=== PATIENT | female | born 1975 | race Two or more races ===

== ENCOUNTER → 2017-01-13 | Outpatient (CLI) | payer OTHER ==
[2016-03-19 15:00] VITALS: BP 111/63
[~2017-01-13] MED LIST: AZAT50TA PO; BUSP15TA PO; CHOL2000 PO; DIAZ5TAB4 PO; ERGO500027 PO; ESCITALOPRAM OX20 MG PO; FOLI1TAB16 PO; GABA-586 PO; HYDR-2762 PO; HYDR200T PO; HYDR25TA PO; IOHEXOL 240 MG/ML 50ML VIAL. PO ONE; IOHEXOL 300 MG/ML 75 ML VIAL IV ONE; METH2.5T PO; NORT25CA PO; OMEP20CA9 PO; PRED1TAB3 PO; TIZA4TAB PO; TRAZ50TA15 PO
--- NOTE | 2017-01-13 10:15 | RAD ---
Exam performed: Complete abdominal sonogram. Indication:Right lower quadrant pain since bowel resection Date of exam: 01/13/17 Technique:Real time norman scale imaging of the abdomen is performed and images are obtained. Findings : The liver is normal in size, however mild steatosis is noted. The liver measures 14.5 cm in length. No intra- or extrahepatic biliary dilatation is present. The gallbladder appears normal. Pancreas is poorly visualized due to overlying bowel gas unremarkable. The spleen is normal in size. Both kidneys are unremarkable without evidence for hydronephrosis. Right kidney measures 9.9 x 5.2 x 4.6 and the left kidney measures 11.1 x 5.0 x 5.7. The visualized inferior vena cava and aorta appear normal. No free fluid Impression: Mild hepatic steatosis. No additional abnormality seen.
--- NOTE | 2017-01-13 14:39 | RAD ---
CT scan of the abdomen and pelvis with contrast 01/13/2017 Clinical history: Right lower quadrant abdominal pain. Technique: After the oral and intravenous administration of contrast, contiguous, 5 mm axial sections were obtained through the abdomen and pelvis. 75 cc of Omnipaque 300 were administered intravenously during this examination. One or more of the following individualized dose reduction techniques were utilized for this study: 1. Automated exposure control. 2. Adjustment of the mA and/or kV according to patient size. 3. Use of iterative reconstruction technique. Findings: Comparison study is dated 01/13/2016. Images through the lung bases demonstrate minimal dependent subsegmental atelectasis bilaterally. The liver, spleen, pancreas, adrenal glands and kidneys are within normal limits. Mild atherosclerotic calcification of the abdominal aorta is seen. The abdominal aorta tapers normally. The gallbladder is contracted. No free fluid or free air is seen within the abdomen. There is no evidence of bowel obstruction. The patient is status post resection of a portion of the ascending colon. Images through the pelvis demonstrate the urinary bladder to be contracted. Calcifications are seen within the pelvis consistent with phleboliths. No free fluid is seen. The patient appears to be post hysterectomy. No adnexal mass is noted. Very mild S-shaped curvature of the thoracolumbar spine is seen. Impression: No acute abnormality is seen.
== END | disposition home or self-care (01) ==
LOC: US 09:15
PROVIDERS: ATTEND Surgery
DX: K76.0 Fatty (change of) liver, not elsewhere classified (principal)
CPT/HCPCS: 74177; 76700; Q9966; Q9967

== ENCOUNTER → 2017-02-15 | Outpatient (CLI) | payer OTHER ==
[2016-03-19 15:00] VITALS: BP 111/63
[~2017-02-15] MED LIST changes: -IOHEXOL 240 MG/ML 50ML VIAL. PO ONE; -IOHEXOL 300 MG/ML 75 ML VIAL IV ONE
--- NOTE | 2017-02-15 09:17 | RAD ---
DATE: 02/15/2017 EXAM: DIGITAL SCREEN BILAT W/CAD HISTORY: Routine screening COMPARISON: Previous mammogram from 2016 This study was interpreted with the benefit of Computerized Aided Detection (CAD). FINDINGS: Breast Density: SCATTERED The breast parenchyma shows scattered fibroglandular densities. Breast parenchyma level B. The skin and nipples are within normal limits. No suspicious calcifications, spiculated masses or areas of architectural distortion. Benign calcifications. IMPRESSION: No mammographic evidence of malignancy. Stable mammogram. BI-RADS CATEGORY: 2 BENIGN FINDING(S) RECOMMENDED FOLLOW-UP: 12M 12 MONTH FOLLOW-UP PQRS compliance statement: Patient information was entered into a reminder system with a target due date 02/15/2018 for the next mammogram. Mammography is a sensitive method for finding small breast cancers, but it does not detect them all and is not a substitute for careful clinical examination. A negative mammogram does not negate a clinically suspicious finding and should not result in delay in biopsying a clinically suspicious abnormality. "Our facility is accredited by the [employer] Mammography Program."
== END | disposition home or self-care (01) ==
LOC: MAMMO 08:14
PROVIDERS: ATTEND Family Medicine
DX: Z12.31 Encounter for screening mammogram for malignant neoplasm of breast (principal)
CPT/HCPCS: G0202; 77067

== ENCOUNTER 2019-05-24 07:23 | Day surgery (SDC) | payer MEDICAID ==
[~2019-05-24] VITALS: Ht 167.6 cm; Wt 57.0 kg
[~2019-05-24 07:23] MED LIST changes: -GABA-586 PO; +GABA300C18 PO; +HEPARIN 1,000 UNIT in IV NORMAL SALINE 1,000 ML for SURG PERIOP IRR ONE; -HYDR-2762 PO; +HYDR-2765 PO; +HYDR-3164 PO; -HYDR200T PO; +HYDR200T71 PO; +HYDROmorphone 2 MG/ML VIAL IV PRN; +IBUPROFEN 200 MG TABLET. PO ONE; +OMEP20CA16 PO; -OMEP20CA9 PO; +PANT20TA2 PO; +PROCHLORPERAZINE 10 MG/2 ML VIAL. IV PRN; +TACR100O2 TP; -TIZA4TAB PO; +TIZA4TAB2 PO; +TRAZ-118 PO; -TRAZ50TA15 PO; +fentaNYL PF VIAL 100 MCG/2 ML VIAL IV PRN
[2019-05-24] MEDS ORDERED: BUPIVACAINE-EPI 0.5%-1:200000 MPF 30 ML VIAL. ONE (08:04)
[2019-05-24] MEDS ORDERED: IOHEXOL 300 MG/ML 50 ML VIAL. ONE (08:04)
[2019-05-24] MEDS ORDERED: SURGICEL HEMOSTAT 4X8 EACH. ONE (08:04)
--- NOTE | 2019-05-24 08:04 | PDOC ---
SURGICAL PROGRESS NOTE Subjective Pre-Op Note 44 yo F with weight loss and extensive GI w/u TO OR for laparoscopic versus open exploration and cholecystectomy with cholangiogram. R/R/B/A d/w pt. Risks, including, but not limited to: bleeding, infection, damage to surrounding structures, risk of anesthesia, risk of , risk of not improving symptoms. She appears to understand, her questions are answered and she elects to proceed. Office note H&P reviewed and unchanged. Vital Signs Vital Signs Date Time Temp Pulse Resp B/P (MAP) Pulse Ox O2 Delivery O2 Flow Rate FiO2 05/24/19 07:45 98.1 80 20 132/76 98 Room Air 98.1 JUDI PALMER MD May 24, 2019 08:04
[2019-05-24] MEDS ORDERED: BISACODYL 10 MG SUPP.RECT. ONE (08:05)
[2019-05-24] MEDS ORDERED: PROPOFOL 20 ML IV ONE (08:14)
[2019-05-24] MEDS ORDERED: LIDOCAINE 2% PF 5 ML VIAL. ONE (08:14)
[2019-05-24] MEDS ORDERED: ONDANSETRON PF 4 MG/2 ML VIAL. ONE (08:14)
[2019-05-24] MEDS ORDERED: DEXAMETHASONE SOD PHOS 4 MG/ML VIAL ONE (08:14)
[2019-05-24] MEDS ORDERED: ROCURONIUM 50 MG/5 ML VIAL. ONE (08:14)
[2019-05-24] MEDS: IV RINGERS,LACTATED 1000ML 1,000 ML IV SCH ×2 (08:15→10:49)
[2019-05-24] MEDS ORDERED: fentaNYL PF VIAL 100 MCG/2 ML VIAL ONE (08:15)
[2019-05-24] MEDS ORDERED: MIDAZOLAM HCL/PF 2 MG/2 ML VIAL. ONE (08:15)
[2019-05-24] MEDS ORDERED: GLYCOPYRROLATE 1 MG/5 ML VIAL. ONE (08:56)
[2019-05-24] MEDS ORDERED: NEOSTIGMINE METHYLSULFATE 5 MG/5 ML SYRINGE. ONE (08:56)
--- NOTE | 2019-05-24 09:48 | PDOC4 ---
OPERATIVE NOTE Date: Date: May 24, 2019 Pre-Op Diagnosis: Weight loss Post-Op Diagnosis: same Procedure Performed: Laparoscopic cholecystectomy with cholangiogram Surgeon: Mitchell Palmer Anesthesia Type: GETA plus local Blood Loss: 5 Specimans Obtained: gallbladder Findings: flaccid gallbladder, normal cholangiogram, no other findings Complications: none Operative Note: After obtaining informed consent, patient was taken to OR, induced under GETA and prepped in the usual fashion. 5 mm port placed umbilical and RUQ, 12 port placed epigastric, all under laparoscopic guidance. Abdominal cavity was explored and otherwise unremarkable. Gallbladder was grasped and taken down in dome down fashion. Cystic artery was ligated with clips. Cholangiogram obtained via cystic duct and was normal. Cystic duct controlled with clips and hemolok. Gallbladder placed in bag, delivered and sent to pathology for evaluation. Copious irrigation. No evidence of bleeding or other pathology noted. Ports removed without bleeding. Fascia repaired with 0 vicryl. Skin repaired with 4 0 monocryl. Dressing placed. Patient tolerated procedure well and sent to PACU in stable condition. All counts correct. JUDI PALMER MD May 24, 2019 09:48
[2019-05-24] MEDS ORDERED: OXYC1TAB15 PO (09:53)
[2019-05-24] MEDS ORDERED: DOCU-109 PO (09:54)
--- NOTE | 2019-05-24 09:55 | RAD ---
C-arm fluoroscopy with fluoroscopic spot views Clinical indications: Intraoperative cholangiogram Total fluoroscopic time: 9.5 seconds. Total fluoroscopic spot images: 2. IMPRESSION: Fluoroscopic spot images demonstrate opacification of the extrahepatic biliary tree with free flow of contrast material from the common bile duct into the duodenum. No common bile duct stone or stricture is seen. Electronically signed by: Jonathan Kern MD (05/24/2019 9:52 AM) [id number]
[2019-05-24] MEDS ORDERED: oxyCODONE/APAP 5/325 1 TAB TABLET PO ONE (10:00)
[2019-05-24] MEDS: fentaNYL PF VIAL 100 MCG/2 ML VIAL IV PRN ×2 (10:24→11:17)
[2019-05-24] MEDS: MORPHINE SULFATE 2 MG/ML VIAL. IV PRN ×2 (10:35→10:50)
[2019-05-24 11:15] VITALS: BP 108/62
--- NOTE | 2019-05-25 17:06 | PATHOLOGY ---
[facility] Accession Number: [id number] . 01 Material submitted: . gallbladder - GALLBLADDER AND CONTENTS . 01 Clinical history: . Right upper quadrant abdominal pain. . 02 Diagnosis: Gallbladder, laparoscopic cholecystectomy: - Chronic cholecystitis, mild. - Reactive changes of gallbladder neck lymph node. (JPM:[facility] 05/25/2019) [facility] 05/25/2019 1523 Local . 02 Comment: There are no calculi identified within the gallbladder lumen or specimen container. There is no evidence of malignancy. (JPM:[facility] 05/25/2019) . 02 Electronically signed: . Waldo Alfaro MD, Pathologist NPI- [id number] . 01 Gross description: . Received in formalin labeled "Serena, Kim, gallbladder and contents" is an intact cholecystectomy specimen measuring 8.4 x 3.2 x 2.8 cm. The serosa is rodriguez-pink and smooth with a possible lymph node measuring 0.6 cm. The specimen is opened to reveal green-brown velvety mucosa without polyps or masses. The average wall thickness is 0.1 cm. Calculi are not present. Charting Clerk sections of the fundus and body, the possible lymph node, and the cystic duct margin are submitted in A1. ([facility] [place] 05/24/2019) [facility] 05/25/2019 1521 Local . 02 Pathologist provided ICD-10: K81.1 . 02 CPT . 844604 Specimen Comment: A courtesy copy of this report has been sent to [phone], [phone] Specimen Comment: 1989 Specimen Comment: Report sent to / DR ARMANDO Performed at: 01 [facility] [address], [place] [id number] MD Roe Balderas MD Phone: [phone] Performed at: [address] [id number] MD Waldo Alfaro MD Phone: [phone]
== END 2019-05-24 12:15 | disposition home or self-care (01) ==
LOC: SURG 07:23
PROVIDERS: ATTEND Surgery
DX: R10.11 Right upper quadrant pain (principal); K81.1 Chronic cholecystitis; R63.4 Abnormal weight loss; F41.8 Other specified anxiety disorders; M19.90 Unspecified osteoarthritis, unspecified site; M32.9 Systemic lupus erythematosus, unspecified; F17.210 Nicotine dependence, cigarettes, uncomplicated; Z79.891 Long term (current) use of opiate analgesic; Z79.899 Other long term (current) drug therapy; Z90.710 Acquired absence of both cervix and uterus; Z90.722 Acquired absence of ovaries, bilateral; Z90.79 Acquired absence of other genital organ(s); Z90.49 Acquired absence of other specified parts of digestive tract; Z82.49 Family history of ischemic heart disease and other diseases of the circulatory system; Z80.0 Family history of malignant neoplasm of digestive organs; Z80.3 Family history of malignant neoplasm of breast
CPT/HCPCS: 47563; 74300; 88304; A7015; J0690; J0780; J1100; J1644; J2001; J2250; J2270; J2405; J2704; J2710; J3010; J3490; J7030; Q9967

== ENCOUNTER → 2019-12-18 | Outpatient (CLI) | payer MEDICAID ==
[~2019-12-18] MED LIST changes: +BARIUM SULFATE 340 GM SUSPENSION. PO ONE; +BARIUM SULFATE 60% 355 ML SUSP PO ONE; +BARIUM SULFATE 700 MG TABLET PO ONE; +DOCU-109 PO; -HEPARIN 1,000 UNIT in IV NORMAL SALINE 1,000 ML for SURG PERIOP IRR ONE; -HYDROmorphone 2 MG/ML VIAL IV PRN; -IBUPROFEN 200 MG TABLET. PO ONE; +OXYC1TAB15 PO; -PROCHLORPERAZINE 10 MG/2 ML VIAL. IV PRN; +SIMETHICONE/SOD BICARB/CITRIC ACID PACKET. PO ONE; -fentaNYL PF VIAL 100 MCG/2 ML VIAL IV PRN
--- NOTE | 2019-12-19 12:10 | RAD ---
Upper GI series with small bowel follow-through. INDICATION: 44-year-old woman with postprandial epigastric discomfort and nausea. COMPARISON: 01/13/[address] with oral and IV contrast. TECHNIQUE: Upper GI series was performed with bilateral posterior oblique images of the thoracic esophagus obtained following initial ingestion of effervescent crystals and then thick barium. Pill ingestion was also tested. Supine images of the upper gastrointestinal tract in the PA, LPO, AP, RPO, and supine PA and upright PA projections. Spot fluoroscopic images were obtained of each position. Small bowel follow-through was next performed with serial abdominal radiographic images obtained at 15 min increments until the proximal large bowel was observed opacified by enteric contrast. Fluoroscopic images of the terminal ileum were next obtained. A total of 2.9 minutes of fluoroscopy time utilized for these exams. 26 fluoroscopic images were obtained for procedural documentation. FINDINGS: The upper GI series shows a normal thoracic esophagus with no evidence of an epiphrenic diverticulum or hiatal hernia. The mucosal contour is normal. The pill passed through the esophagus without delay. No mucosal abnormality was observed in the stomach or duodenal bulb. Some retained previously ingested material was observed in the stomach. There is normal contour to the duodenal C-loop with no findings of bowel distention or mucosal edema. The small bowel follow-through shows normal caliber and distribution of small bowel loops with no findings of mucosal edema, stricture or fistula. The terminal ileum was unremarkable. Incidental findings are of a previous cholecystectomy and surgical material in the right abdomen consistent with previous bowel surgery. Additional surgical clips in the pelvis are incidentally noted. IMPRESSION: A small amount of retained enteric contrast in the stomach prior to the procedure but otherwise unremarkable upper GI series and small bowel follow-through. No specific findings to explain postprandial nausea is identified. Electronically signed by: Yi Garland MD (12/19/2019 12:07 PM) [id number]
== END | disposition home or self-care (01) ==
LOC: RAD 07:50
PROVIDERS: ATTEND Internal Medicine Gastroenterology
DX: R10.84 Generalized abdominal pain (principal); R11.2 Nausea with vomiting, unspecified; Z90.49 Acquired absence of other specified parts of digestive tract
CPT/HCPCS: 74248